=== PATIENT | female | born 1940 | race Caucasian/White ===

== ENCOUNTER 2021-05-15 18:51 | Emergency (ER) | payer MEDICARE, OTHER ==
[~2021-05-15] VITALS: Ht 157.5 cm; Wt 63.5 kg
--- NOTE | 2021-05-15 19:19 | NUR ---
According to Daughter, Sharri, she is not aware if patient has any medication allergies; but will confirm
[2021-05-15 19:28] LABS: HEMATOCRIT 35.2 % (31.2-41.9); MEAN CORPUSCULAR HEMOGLOBIN 30.4 uug (24.7-32.8); MEAN CORPUSCULAR VOLUME 88.7 fL (75.5-95.3); PLATELET COUNT (AUTO) 248 K/uL (179-408)
[2021-05-15 19:35] LABS: CREATININE 0.9 mg/dL (0.6-1.3); POTASSIUM 3.9 mmol/L (3.5-5.1)
[2021-05-15 19:47] LABS: BILIRUBIN,DIRECT 0.1 mg/dL (0.0-0.2); BILIRUBIN,TOTAL 0.3 mg/dL (0.2-1.0); TOTAL PROTEIN, SERUM 6.7 g/dL (6.4-8.2)
--- NOTE | 2021-05-15 20:53 | NUR ---
Radiology in room to take patient to CT scan.
[2021-05-15] MEDS ORDERED: SWABABLE VALVE TRANSFER SET EA MC ONE (21:05)
[2021-05-15] MEDS ORDERED: IV NORMAL SALINE 250 ML IV ONE (21:05)
[2021-05-15] MEDS ORDERED: IOHEXOL 350 100 ML INFUS..BTL ONE (21:05)
--- NOTE | 2021-05-15 21:25 | NUR ---
Patient returned from CT scan.
--- NOTE | 2021-05-15 22:32 | NUR ---
Patient discharged to [facility] with daughter in stable condition. Written and verbal after care instructions given to patient & daughter. Patient and daughter verbalizes understanding of instructions. Stressed follow up or return to ER for worsening s/s. Patient ambulates with steady gait, V/S stable, IV line removed, and left with all personal belongings into care of daughter.
[2021-05-15 22:33] VITALS: BP 150/76
== END 2021-05-15 22:35 ==
LOC: ER 18:56
DX: R07.89 Other chest pain (principal); F03.90 Unspecified dementia, unspecified severity, without behavioral disturbance, psychotic disturbance, mood disturbance, and anxiety; R79.1 Abnormal coagulation profile; Z90.49 Acquired absence of other specified parts of digestive tract; Z88.1 Allergy status to other antibiotic agents; Z88.8 Allergy status to other drugs, medicaments and biological substances; I51.7 Cardiomegaly
CPT/HCPCS: 36415; 71045; 71275; 80048; 80076; 83690; 83880; 84484; 85025; 85379; 93005; 99285; Q9967; 70030-TC; A4663; J7050

== ENCOUNTER 2025-06-28 17:30 | Emergency (ER) | payer MEDICARE ==
[~2025-06-28] VITALS: Ht 157.5 cm; Wt 63.5 kg
[2025-06-28] MEDS ORDERED: POLY17PO4 PO (17:49)
[2025-06-28] MEDS ORDERED: ACID1TAB12 PO (17:49)
[2025-06-28] MEDS ORDERED: MELA3CAP2 PO (17:49)
[2025-06-28] MEDS ORDERED: DULO60CA45 PO (17:49)
[2025-06-28] MEDS ORDERED: LIDOCAINE 4% PATCH TD (17:49)
[2025-06-28] MEDS ORDERED: MEMA10TA PO (17:49)
[2025-06-28] MEDS ORDERED: MULT-1160 PO (17:49)
[2025-06-28] MEDS ORDERED: GABA300C PO (17:49)
[2025-06-28] MEDS ORDERED: GABA100C PO (17:49)
[2025-06-28] MEDS ORDERED: PREVAGEN PO (17:49)
[2025-06-28] MEDS ORDERED: SIMV-46 PO (17:49)
[2025-06-28] MEDS ORDERED: ACET-2605 PO (17:49)
[2025-06-28 19:00] LABS: PLATELET COUNT (AUTO) 234 K/uL (179-408); RED BLOOD CELL COUNT(AUTO) 4.33 MIL/uL (3.63-4.92); RED CELL DISTRIBUTION WIDTH 14.5 % (12.3-17.7); WHITE BLOOD COUNT (AUTO) 12.3 K/uL (3.8-11.8)
[2025-06-28 19:10] LABS: CREATININE 0.8 mg/dL (0.6-1.3); SODIUM SERUM 140 mmol/L (136-145); UREA NITROGEN, BLOOD 15 mg/dL (7-18)
[2025-06-28 19:16] LABS: ASPARTATE AMINOTRANSFERASE 21 U/L (15-37); TOTAL PROTEIN, SERUM 7.2 g/dL (6.4-8.2)
[2025-06-28 19:30] VITALS: BP 135/80
[2025-06-28 20:54] VITALS: BP 130/79; O2SAT 99
== END 2025-06-28 20:22 | disposition home or self-care (01) ==
LOC: ER 17:30
DX: K59.00 Constipation, unspecified (principal); R10.9 Unspecified abdominal pain; E78.00 Pure hypercholesterolemia, unspecified; R06.02 Shortness of breath; G30.9 Alzheimer's disease, unspecified; Z79.899 Other long term (current) drug therapy; Z88.1 Allergy status to other antibiotic agents
CPT/HCPCS: 36415; 71045; 83690; 84484; 85025; 87040; A4606; A4663